=== PATIENT | female | born 1975 | race African-American/Black ===

== ENCOUNTER 2020-11-02 13:43 | Emergency (ER) | payer OTHER ==
[~2020-11-02] VITALS: Ht 162.6 cm; Wt 86.2 kg
--- NOTE | 2020-11-02 14:01 | NUR ---
ALYSA Reina FROM WORK C/O WITNESSED SEIZURE EPISODE 1-2 MINS. THE PATIENT IS ALERT AND ORIENTED X3. DENIES PAIN. IN ROOM AIR AND DENIES SOB. RESPIRATION REGULAR AND UNLABORED. THE PATIENT HAS NO APPARENT TRAUMA. ATTACHED TO THE MONITOR. SEIZURE PRECAUTIONS TAKEN. WILL CONTINUE TO MONITOR THE PATIENT.
[2020-11-02 14:37] LABS: BASOPHILS # (AUTO) 0.1 K/uL (0.0-0.2); BASOPHILS % (AUTO) 0.8 % (0.0-2.0); EOSINOPHILS % (AUTO) 0.6 % (0.0-6.0); HEMATOCRIT 43 % (33-45); LYMPHOCYTES % (AUTO) 17.7 % (20.0-44.0); MEAN CORPUSCULAR HGB CONC 32 g/dl (31.0-36.0); MEAN CORPUSCULAR VOLUME 89 fL (82-100); MONOCYTES # (AUTO) 0.6 K/uL (0.1-1.30); NEUTROPHILS # (AUTO) 8.5 K/uL (1.8-8.9); NEUTROPHILS % (AUTO) 75.9 % (43.0-81.0); PLATELET COUNT (AUTO) 316 K/uL (150-450); RED BLOOD CELL COUNT(AUTO) 4.86 MIL/uL (4.0-5.2); WHITE BLOOD COUNT (AUTO) 11.2 K/uL (4.3-11.0)
[2020-11-02 14:41] LABS: CALCIUM, SERUM 8.7 mg/dL (8.5-10.1); CARBON DIOXIDE 21 mmol/L (21-32); CHLORIDE 103 mmol/L (98-107); CREATININE 1.1 mg/dL (0.6-1.3); GLUCOSE 124 mg/dL (74-106); POTASSIUM 3.9 mmol/L (3.5-5.1); SODIUM SERUM 139 mmol/L (136-145); UREA NITROGEN, BLOOD 9 mg/dL (7-18)
[2020-11-02 14:43] LABS: ALCOHOL, BLOOD < 3 mg/dL (0-0)
[2020-11-02] MEDS ORDERED: IV LR 1000 ML 1,000 ML IV PRN (15:00)
--- NOTE | 2020-11-02 15:31 | NUR ---
CALLED DASHA FOR READ.
--- NOTE | 2020-11-02 16:20 | NUR ---
URINE COLLECTED AND SENT TO THE LAB
--- NOTE | 2020-11-02 17:22 | NUR ---
Patient discharged to home in stable condition. Written and verbal after care instructions given. Patient verbalizes understanding of instruction. IV removed. Catheter intact and site benign. Pressure and 4x4 applied to site. No bleeding noted.
[2020-11-02 17:23] VITALS: BP 132/76
== END 2020-11-02 17:23 | disposition home or self-care (01) ==
LOC: ER 13:45
DX: R56.9 Unspecified convulsions (principal); R41.0 Disorientation, unspecified
CPT/HCPCS: 36415; 70450; 80048; 80307; 80320; 84703; 85025; 96360; 99284; J7120 ×2; G0480